=== PATIENT | female | born 1990 | race African-American/Black ===

== ENCOUNTER 2017-05-14 09:52 | Emergency (ER) | payer OTHER ==
[~2017-05-14] VITALS: Ht 157.5 cm; Wt 74.8 kg
[2017-05-14 10:42] VITALS: BP 145/76
== END 2017-05-14 10:51 | disposition home or self-care (01) ==
LOC: ER 09:52
DX: I88.9 Nonspecific lymphadenitis, unspecified (principal); J02.9 Acute pharyngitis, unspecified; F17.200 Nicotine dependence, unspecified, uncomplicated; M54.2 Cervicalgia
CPT/HCPCS: A4663